=== PATIENT | female | born 1940 | race Caucasian/White ===

== ENCOUNTER 2019-01-03 16:56 | Observation (INO) | payer MEDICARE, OTHER ==
[2019-01-03 18:13] LABS: ABNORMAL IP MESSAGE 1; HEMATOCRIT 22.2 % (37.0-47.0); MEAN CORPUSCULAR HEMOGLOBIN 19.4 pg (29.0-33.0); MEAN CORPUSCULAR HGB CONC 27.5 g/dl (32.0-37.0); MEAN CORPUSCULAR VOLUME 70.5 fl (82.0-101.0); MEAN PLATELET VOLUME 9.8 fl (7.4-10.4); PLATELET COUNT 265 10^3/UL (140-415); RED BLOOD COUNT 3.15 10^6/ul (4.20-5.40); RED CELL DISTRIBUTION WIDTH 18.9 % (11.5-14.5)
[2019-01-03 18:29] LABS: ADD MAN DIFF? YES; HEMOGLOBIN 6.1 g/dl (12.0-16.0); POSITIVE DIFF @See below
[2019-01-03 18:30] LABS: PATH REVIEW? YES
[2019-01-03 18:33] LABS: ALANINE AMINOTRANSFERASE 10 IU/L (13-69); ALBUMIN 4.5 g/dl (3.3-4.9); ALKALINE PHOSPHATASE 51 IU/L (42-121); ANION GAP 16 (5-13); ASPARTATE AMINO TRANSFERASE 17 IU/L (15-46); BILIRUBIN,INDIRECT 0.1 mg/dl (0-1.1); BILIRUBIN,TOTAL 0.1 mg/dl (0.2-1.3); BLOOD UREA NITROGEN 31 mg/dl (7-20); CALCIUM 10.1 mg/dl (8.4-10.2); CARBON DIOXIDE 22 mmol/L (21-31); CHLORIDE 107 mmol/L (97-110); CREATININE 1.12 mg/dl (0.44-1.00); GLUCOSE 110 mg/dl (70-220); LIPASE 164 U/L (23-300); SODIUM 145 mmol/L (135-144); TOTAL PROTEIN 7.7 g/dl (6.1-8.1)
[2019-01-03 18:44] LABS: B-TYPE NATRIURETIC PEPTIDE 1300 PG/ML (0-450); TROPONIN-I < 0.012 ng/ml (0.000-0.120)
[2019-01-03 19:05] LABS: ANISOCYTOSIS 2+ (0-0); BAND NEUTROPHILS #M 0.3 10^3/ul (0.0-0.6); BAND NEUTROPHILS % (M) 3 % (0-4); HYPOCHROMASIA 2+ (0-0); LYMPHOCYTES #M 2.4 10^3/ul (0.8-2.9); LYMPHOCYTES % (M) 20 % (15-51); MICROCYTOSIS 2+ (0-0); MONOCYTE #M 0.8 10^3/ul (0.3-0.9); MONOCYTES % (M) 7 % (0-11); OVALOCYTES 1+ (0-0); PLATELET ESTIMATE NORMAL; POIKILOCYTOSIS 1+ (0-0); POLYCHROMASIA 1+ (0-0); SEG NEUT #M 8.4 10^3/ul (1.6-7.5); SEGMENTED NEUTROPHILS (M) % 70 % (39-77); SMUDGE%M 3 % (0-0)
[2019-01-03 20:21] LABS: TOTAL IRON BINDING CAPACITY 436 ug/dl (241-421)
[2019-01-03 20:25] LABS: IRON < 10 ug/dl (35-150)
[2019-01-03] MEDS: FUROSEMIDE 20 MG INJ IV (20:39)
[2019-01-03 21:37] LABS: ADD UMIC YES; UR ASCORBIC ACID NEGATIVE (NEGATIVE); UR BILIRUBIN (Dip) NEGATIVE (NEGATIVE); UR BLOOD (Dip) NEGATIVE (NEGATIVE); UR CLARITY SLIGHTLY CLOUDY (CLEAR); UR COLOR STRAW (YELLOW); UR GLUCOSE (Dip) NEGATIVE (NEGATIVE); UR KETONES (Dip) NEGATIVE (NEGATIVE); UR LEUKOCYTE ESTERASE (Dip) TRACE Leu/ul (NEGATIVE); UR NITRITE (Dip) NEGATIVE (NEGATIVE); UR RBC 2 /HPF (0-5); UR SQUAMOUS EPITHELIAL CELL FEW /HPF (FEW); UR TOTAL PROTEIN (Dip) NEGATIVE (NEGATIVE); UR UROBILINOGEN (Dip) NEGATIVE (NEGATIVE); UR WBC 4 /HPF (0-5)
[2019-01-03] MEDS: SOD CHLORIDE 0.9% 0 ML IV (22:20)
[2019-01-04] MEDS: PANTOPRAZOLE 40 MG INJ IV (05:35)
[2019-01-04 08:43] LABS: ADD MAN DIFF? NO
[2019-01-04 08:46] LABS: WHITE BLOOD COUNT 10.2 10^3/ul (4.8-10.8)
[2019-01-04 08:46] LABS: BASOPHILS % 0.4 % (0.0-2.0); EOSINOPHILS % 0.4 % (0.0-7.0); HEMATOCRIT 27.8 % (37.0-47.0); HEMOGLOBIN 8.4 g/dl (12.0-16.0); LYMPHOCYTES # 1.4 10^3/ul (0.8-2.9); LYMPHOCYTES % 14.1 % (15.0-51.0); MEAN CORPUSCULAR HEMOGLOBIN 21.9 pg (29.0-33.0); MEAN CORPUSCULAR HGB CONC 30.2 g/dl (32.0-37.0); MEAN CORPUSCULAR VOLUME 72.4 fl (82.0-101.0); MEAN PLATELET VOLUME 9.7 fl (7.4-10.4); MONOCYTE # 1.1 10^3/ul (0.3-0.9); MONOCYTES % 10.8 % (0.0-11.0); NEUTROPHIL # 7.5 10^3/ul (1.6-7.5); NEUTROPHILS % 73.5 % (39.0-77.0); PLATELET COUNT 204 10^3/UL (140-415); RED BLOOD COUNT 3.84 10^6/ul (4.20-5.40); RED CELL DISTRIBUTION WIDTH 19.5 % (11.5-14.5)
[2019-01-04] MEDS: ATENOLOL 25 MG TAB PO ×2 (13:13→20:27)
[2019-01-04] MEDS: NIFEdipine (XL) 60 MG TAB PO (13:14)
[2019-01-04] MEDS: CYANOCOBALAMIN 1000 MCG INJ IM (13:15)
[2019-01-04 13:52] LABS: IMMEDIATE SPIN CROSSMATCH 1 3
[2019-01-04] MEDS: BISACODYL (EC) 5 MG TAB PO (17:05)
[2019-01-04] MEDS: MAGNESIUM CITRATE 300 ML BTL PO (18:07)
[2019-01-04 19:14] LABS: INR 1.02; PROTIME 13.5 Sec (11.9-14.9); PT RATIO 1.1
[2019-01-04] MEDS: POLYETHYLENE GLYCOL 3350 119 GM POWDER PO (20:28)
[2019-01-05] MEDS: POLYETHYLENE GLYCOL 3350 119 GM POWDER PO (05:49)
[2019-01-05] MEDS: PANTOPRAZOLE 40 MG INJ IV (05:50)
[2019-01-05 05:52] LABS: ADD MAN DIFF? NO
[2019-01-05 06:01] LABS: WHITE BLOOD COUNT 7.7 10^3/ul (4.8-10.8)
[2019-01-05 06:01] LABS: BASOPHIL # 0.1 10^3/ul (0.0-0.1); BASOPHILS % 0.8 % (0.0-2.0); EOSINOPHILS # 0.1 10^3/ul (0.0-0.5); HEMATOCRIT 32.8 % (37.0-47.0); LYMPHOCYTES # 1.9 10^3/ul (0.8-2.9); LYMPHOCYTES % 25.1 % (15.0-51.0); MEAN CORPUSCULAR HEMOGLOBIN 22.5 pg (29.0-33.0); MEAN CORPUSCULAR HGB CONC 30.5 g/dl (32.0-37.0); MEAN CORPUSCULAR VOLUME 73.9 fl (82.0-101.0); MONOCYTE # 0.9 10^3/ul (0.3-0.9); NEUTROPHIL # 4.6 10^3/ul (1.6-7.5); NEUTROPHILS % 60.4 % (39.0-77.0); PLATELET COUNT 208 10^3/UL (140-415); RED BLOOD COUNT 4.44 10^6/ul (4.20-5.40); RED CELL DISTRIBUTION WIDTH 20.7 % (11.5-14.5)
[2019-01-05] MEDS: BISACODYL (EC) 5 MG TAB PO (06:50)
[2019-01-05] MEDS ORDERED: PROPOFOL 200 MG INJ (07:00)
[2019-01-05] MEDS: CYANOCOBALAMIN 1000 MCG INJ IM (07:55)
[2019-01-05] MEDS: NIFEdipine (XL) 60 MG TAB PO (07:56)
[2019-01-05] MEDS: ATENOLOL 25 MG TAB PO (07:57)
[2019-01-05] MEDS ORDERED: PROPOFOL 40 ML (11:44)
[2019-01-05] MEDS ORDERED: FENTAnyl 50 MCG/ML VIAL (11:44)
== END 2019-01-05 20:40 | disposition home or self-care (01) ==
LOC: E/R 16:56 → 2NE 19:36
DX: D50.9 Iron deficiency anemia, unspecified (principal); D12.2 Benign neoplasm of ascending colon; K57.30 Diverticulosis of large intestine without perforation or abscess without bleeding; K20.9 Esophagitis, unspecified; K44.9 Diaphragmatic hernia without obstruction or gangrene; K29.70 Gastritis, unspecified, without bleeding; I10 Essential (primary) hypertension; E11.9 Type 2 diabetes mellitus without complications; E78.5 Hyperlipidemia, unspecified; E53.8 Deficiency of other specified B group vitamins; Z86.718 Personal history of other venous thrombosis and embolism; Z79.01 Long term (current) use of anticoagulants
CPT/HCPCS: 36430; 71045; 80053; 81001; 82607; 82746; 82962; 83540; 83690; 83880; 84484; 85025; 85610; 86850; 86900; 86901; 86920; 88305; 93005; 99217; 99285-25; G0378

== ENCOUNTER 2019-01-12 16:29 | Inpatient (IN) | payer MEDICARE, OTHER ==
[~2019-01-12 16:29] MED LIST: ALENDRONATE 70 MG TAB PO
[2019-01-12 17:42] LABS: ADD MAN DIFF? NO
[2019-01-12 17:44] LABS: ABNORMAL IP MESSAGE 1; BASOPHIL # 0.1 10^3/ul (0.0-0.1); BASOPHILS % 0.4 % (0.0-2.0); EOSINOPHILS # 0.1 10^3/ul (0.0-0.5); EOSINOPHILS % 0.4 % (0.0-7.0); HEMATOCRIT 31.6 % (37.0-47.0); HEMOGLOBIN 9.5 g/dl (12.0-16.0); LYMPHOCYTES # 1.8 10^3/ul (0.8-2.9); LYMPHOCYTES % 9.9 % (15.0-51.0); MEAN CORPUSCULAR HEMOGLOBIN 23.1 pg (29.0-33.0); MEAN CORPUSCULAR HGB CONC 30.1 g/dl (32.0-37.0); MEAN CORPUSCULAR VOLUME 76.7 fl (82.0-101.0); MEAN PLATELET VOLUME 9.8 fl (7.4-10.4); MONOCYTE # 1.6 10^3/ul (0.3-0.9); MONOCYTES % 8.8 % (0.0-11.0); NEUTROPHIL # 14.1 10^3/ul (1.6-7.5); NEUTROPHILS % 79.2 % (39.0-77.0); PLATELET COUNT 121 10^3/UL (140-415); RED BLOOD COUNT 4.12 10^6/ul (4.20-5.40); RED CELL DISTRIBUTION WIDTH 23.3 % (11.5-14.5)
[2019-01-12 17:44] LABS: WHITE BLOOD COUNT 17.8 10^3/ul (4.8-10.8)
[2019-01-12 17:47] LABS: POSITIVE DIFF @See below
[2019-01-12] MEDS: morphine 4 MG/ML VIAL IV (17:51)
[2019-01-12] MEDS: ONDANSETRON 4 MG INJ IV (17:51)
[2019-01-12] MEDS: PANTOPRAZOLE 40 MG INJ IV (17:51)
[2019-01-12] MEDS: SOD CHLORIDE 0.9% 0 ML IV (17:51)
[2019-01-12 18:03] LABS: ALANINE AMINOTRANSFERASE 14 IU/L (13-69); ALBUMIN 4.8 g/dl (3.3-4.9); ALBUMIN/GLOBULIN RATIO 1.37; ALKALINE PHOSPHATASE 64 IU/L (42-121); ANION GAP 18 (5-13); ASPARTATE AMINO TRANSFERASE 23 IU/L (15-46); BILIRUBIN,INDIRECT 0.6 mg/dl (0-1.1); BILIRUBIN,TOTAL 0.6 mg/dl (0.2-1.3); BLOOD UREA NITROGEN 70 mg/dl (7-20); CARBON DIOXIDE 20 mmol/L (21-31); CHLORIDE 100 mmol/L (97-110); CREATININE 2.67 mg/dl (0.44-1.00); GLUCOSE 172 mg/dl (70-220); POTASSIUM 5.4 mmol/L (3.5-5.1); SODIUM 138 mmol/L (135-144); TOTAL PROTEIN 8.3 g/dl (6.1-8.1)
[2019-01-12 18:05] LABS: INR 3.02; PROTIME 31.3 Sec (11.9-14.9); PT RATIO 2.4
[2019-01-12 18:06] LABS: PARTIAL THROMBOPLASTIN TIME 52.7 Sec (23.0-35.0)
[2019-01-12 18:14] LABS: TROPONIN-I < 0.012 ng/ml (0.000-0.120)
[2019-01-12] MEDS ORDERED: ONDANSETRON 4 MG INJ IV ×2 (18:30→23:00)
[2019-01-12] MEDS ORDERED: ACETAMINOPHEN 325 MG TAB PO (18:30)
[2019-01-13 05:17] LABS: ADD MAN DIFF? NO
[2019-01-13 05:19] LABS: WHITE BLOOD COUNT 9.5 10^3/ul (4.8-10.8)
[2019-01-13 05:19] LABS: ABNORMAL IP MESSAGE 1; BASOPHILS % 0.3 % (0.0-2.0); EOSINOPHILS # 0.1 10^3/ul (0.0-0.5); EOSINOPHILS % 1.1 % (0.0-7.0); HEMATOCRIT 27.4 % (37.0-47.0); HEMOGLOBIN 8.1 g/dl (12.0-16.0); LYMPHOCYTES # 1.6 10^3/ul (0.8-2.9); LYMPHOCYTES % 17.2 % (15.0-51.0); MEAN CORPUSCULAR HEMOGLOBIN 22.6 pg (29.0-33.0); MEAN CORPUSCULAR HGB CONC 29.6 g/dl (32.0-37.0); MEAN CORPUSCULAR VOLUME 76.5 fl (82.0-101.0); MEAN PLATELET VOLUME 9.9 fl (7.4-10.4); MONOCYTE # 0.9 10^3/ul (0.3-0.9); NEUTROPHIL # 6.8 10^3/ul (1.6-7.5); NEUTROPHILS % 71.6 % (39.0-77.0); PLATELET COUNT 107 10^3/UL (140-415); RED BLOOD COUNT 3.58 10^6/ul (4.20-5.40)
[2019-01-13] MEDS: PANTOPRAZOLE (EC) 40 MG TAB PO (05:22)
[2019-01-13 05:26] LABS: POSITIVE DIFF @See below
[2019-01-13 05:39] LABS: ADD UMIC YES; UR ASCORBIC ACID NEGATIVE (NEGATIVE); UR BILIRUBIN (Dip) NEGATIVE (NEGATIVE); UR BLOOD (Dip) NEGATIVE (NEGATIVE); UR CLARITY SLIGHTLY CLOUDY (CLEAR); UR COLOR YELLOW (YELLOW); UR GLUCOSE (Dip) NEGATIVE (NEGATIVE); UR KETONES (Dip) NEGATIVE (NEGATIVE); UR LEUKOCYTE ESTERASE (Dip) 1+ Leu/ul (NEGATIVE); UR NITRITE (Dip) NEGATIVE (NEGATIVE); UR RBC 3 /HPF (0-5); UR SPECIFIC GRAVITY (Dip) 1.014 (1.003-1.030); UR SQUAMOUS EPITHELIAL CELL FEW /HPF (FEW); UR TOTAL PROTEIN (Dip) NEGATIVE (NEGATIVE); UR UROBILINOGEN (Dip) NEGATIVE (NEGATIVE); UR WBC 7 /HPF (0-5)
[2019-01-13 05:40] LABS: INR 1.49; PROTIME 18.1 Sec (11.9-14.9); PT RATIO 1.4
[2019-01-13 06:04] LABS: ANION GAP 12 (5-13); BLOOD UREA NITROGEN 68 mg/dl (7-20); CALCIUM 8.9 mg/dl (8.4-10.2); CARBON DIOXIDE 22 mmol/L (21-31); CHLORIDE 105 mmol/L (97-110); CREATININE 2.11 mg/dl (0.44-1.00); GLUCOSE 129 mg/dl (70-220); POTASSIUM 4.5 mmol/L (3.5-5.1); SODIUM 139 mmol/L (135-144)
[2019-01-13] MEDS: ALENDRONATE 70 MG TAB PO (07:03)
[2019-01-13] MEDS ORDERED: NIFEdipine (XL) 60 MG TAB PO (09:00)
[2019-01-13] MEDS ORDERED: GABAPENTIN 300 MG CAP PO (09:00)
[2019-01-13] MEDS: ATENOLOL 25 MG TAB PO ×2 (09:00→21:23)
[2019-01-13] MEDS ORDERED: FUROSEMIDE 40 MG TAB PO (09:00)
[2019-01-13] MEDS: DOCUSATE SODIUM 100 MG CAP PO (09:39)
[2019-01-13] MEDS: TIOTROPIUM 18 MCG CAPSULE INHA DEV INH (09:40)
[2019-01-13] MEDS: SOD CHLORIDE 0.9% 1,000 ML IV ×2 (15:13)
[2019-01-13] MEDS: MONTELUKAST 10 MG TAB PO (21:00)
[2019-01-13 21:05] LABS: IMMEDIATE SPIN CROSSMATCH 1 2
[2019-01-13] MEDS: ATORVASTATIN 20 MG TAB PO (21:06)
[2019-01-13] MEDS: ACETAMINOPHEN 325 MG TAB PO (21:14)
[2019-01-13] MEDS ORDERED: GLUCOSE GEL 15 GRAM TUBE PO ×2 (23:30)
[2019-01-13] MEDS ORDERED: GLUCAGON 1 MG INJ IM (23:30)
[2019-01-13] MEDS ORDERED: GLUCOSE GEL 15 GRAM TUBE BUCCAL (23:30)
[2019-01-13] MEDS ORDERED: DEXTROSE 50% 50 ML SYRINGE IV ×2 (23:30)
[2019-01-13] MEDS: CEFTRIAXONE 1 GM/50 ML (PMX) 50 ML IVPB (23:57)
[2019-01-14] MEDS: ACCU-CHEK XX (02:00)
[2019-01-14 05:36] LABS: ADD MAN DIFF? NO
[2019-01-14 05:47] LABS: WHITE BLOOD COUNT 8.1 10^3/ul (4.8-10.8)
[2019-01-14 05:47] LABS: ABNORMAL IP MESSAGE 1; BASOPHILS % 0.4 % (0.0-2.0); EOSINOPHILS # 0.1 10^3/ul (0.0-0.5); EOSINOPHILS % 1.5 % (0.0-7.0); HEMATOCRIT 31.4 % (37.0-47.0); HEMOGLOBIN 9.4 g/dl (12.0-16.0); LYMPHOCYTES # 1.2 10^3/ul (0.8-2.9); LYMPHOCYTES % 15.3 % (15.0-51.0); MEAN CORPUSCULAR HEMOGLOBIN 23.5 pg (29.0-33.0); MEAN CORPUSCULAR HGB CONC 29.9 g/dl (32.0-37.0); MEAN CORPUSCULAR VOLUME 78.5 fl (82.0-101.0); MEAN PLATELET VOLUME 9.8 fl (7.4-10.4); MONOCYTE # 0.9 10^3/ul (0.3-0.9); MONOCYTES % 10.6 % (0.0-11.0); NEUTROPHIL # 5.8 10^3/ul (1.6-7.5); NEUTROPHILS % 71.2 % (39.0-77.0); PLATELET COUNT 135 10^3/UL (140-415); RED CELL DISTRIBUTION WIDTH 22.4 % (11.5-14.5)
[2019-01-14 05:52] LABS: POSITIVE DIFF @See below
[2019-01-14 06:00] LABS: ANION GAP 8 (5-13); BLOOD UREA NITROGEN 50 mg/dl (7-20); CALCIUM 9.3 mg/dl (8.4-10.2); CARBON DIOXIDE 25 mmol/L (21-31); CHLORIDE 109 mmol/L (97-110); CREATININE 1.36 mg/dl (0.44-1.00); GLUCOSE 121 mg/dl (70-220); POTASSIUM 4.3 mmol/L (3.5-5.1); SODIUM 142 mmol/L (135-144)
[2019-01-14] MEDS: PANTOPRAZOLE (EC) 40 MG TAB PO (06:26)
[2019-01-14] MEDS: ACETAMINOPHEN 325 MG TAB PO (06:26)
[2019-01-14] MEDS: INSULIN ASPART [NOVOLOG] 3 ML PEN SC ×2 (08:00→12:00)
[2019-01-14] MEDS: SOD CHLORIDE 0.9% 1,000 ML IV (08:07)
[2019-01-14] MEDS: ATENOLOL 25 MG TAB PO (08:17)
[2019-01-14] MEDS: DOCUSATE SODIUM 100 MG CAP PO (08:18)
[2019-01-14] MEDS: TIOTROPIUM 18 MCG CAPSULE INHA DEV INH (08:50)
[2019-01-14 16:44] LABS: OCCULT BLOOD STOOL NEGATIVE (NEGATIVE)
== END 2019-01-14 16:50 | disposition home health service (06) | DRG 300 ==
LOC: E/R 16:29 → 2NE 22:09
PROC: 30233N1 Transfusion of Nonautologous Red Blood Cells into Peripheral Vein, Percutaneous Approach (ICD-10-PCS; principal; 2019-01-13)
DX: I82.413 Acute embolism and thrombosis of femoral vein, bilateral (principal); N17.9 Acute kidney failure, unspecified; D62 Acute posthemorrhagic anemia; N39.0 Urinary tract infection, site not specified; I82.433 Acute embolism and thrombosis of popliteal vein, bilateral; I82.813 Embolism and thrombosis of superficial veins of lower extremities, bilateral; E86.0 Dehydration; I10 Essential (primary) hypertension; E11.40 Type 2 diabetes mellitus with diabetic neuropathy, unspecified; Z86.718 Personal history of other venous thrombosis and embolism; E78.5 Hyperlipidemia, unspecified
CPT/HCPCS: 36415; 36430; 71045; 74018; 80048; 80053; 81001; 82270; 82962; 84484; 85025; 85610; 85730; 86850; 86900; 86901; 86920; 93005; 93970; 96374; 96375; 99285-25